=== PATIENT | male | born 1970 | race Hispanic/Latino ===

== ENCOUNTER → 2024-05-19 | Outpatient (CLI) | payer OTHER ==
[2024-05-19 16:32] LABS: HEMOGLOBIN A1C 6.9 % (4.0-6.0)
[2024-05-19 16:35] LABS: ALBUMIN 3.9 g/dL (3.5-5.0); BILIRUBIN,TOTAL 0.5 mg/dL (0.2-1.0); CREATININE 0.9 mg/dL (0.5-1.3); POTASSIUM 4.9 mmol/L (3.5-5.1); TOTAL PROTEIN, SERUM 7.1 g/dL (6.0-8.3)
== END | disposition home or self-care (01) ==
LOC: LAB 13:46
PROVIDERS: ATTEND Student in an Organized Health Care Education/Training Program
DX: I11.9 Hypertensive heart disease without heart failure (principal); E11.65 Type 2 diabetes mellitus with hyperglycemia; E78.5 Hyperlipidemia, unspecified; R07.9 Chest pain, unspecified
CPT/HCPCS: 36415; 80053; 80061; 83036

== ENCOUNTER → 2024-05-24 | Outpatient (CLI) | payer OTHER ==
[~2024-05-24] MED LIST: IOHEXOL 350 MG/ML 100ML INFUS..BTL IV ONE; metoPROLOL tartRATE 1 MG/ML 5ML VIAL IV ONE
--- NOTE | 2024-05-24 14:50 | HMCIMG ---
CT CARDIAC ANGIO W/CONT. CCTA REASON: CHEST PAIN COMPARISON: None TECHNIQUE: Images are obtained through the heart in the axial plane before and during bolus IV contrast infusion, 100 cc Omnipaque 350. 2-D and 3-D multiplanar reconstruction images were then performed. The injection had to be repeated once due to motion artifact on the first sequence, total contrast volume was 200 cc. FINDINGS: This dictation is for the noncardiac findings only. Cardiac and coronary artery findings are reported separately. Visualized portions of the lungs are clear. There is normal-appearing pulmonary interstitium. There is no hilar or mediastinal lymphadenopathy. Chest wall structures appear unremarkable. IMPRESSION: 1. Unremarkable noncardiac portions of CT cardiac angiography.
--- NOTE | 2024-05-29 13:36 | CARDIOLOGY ---
RAD REPORT: VALDOSTAARY CT ANGIO RADIOLOGY REPORT: CORONARY CT ANGIOGRAPHY DATE: May 29, 2024 QUALITY: Excellent CLINICAL HISTORY AND INDICATION: [chest pain ] TECHNIQUE: After obtaining a preliminary agricultural consultant image, contrast imaging performed on an [employer] [id number] scanner. A dedicated, limited window, coronary imaging protocol was used, with single breath-hold, retrospective ECG gating, and automated arrhythmia rejection. 100 cc of low osmolar contrast agent: Omnipaque 350 was delivered via a 18-gauge IV catheter in the right antecubital fossa, using a power injector and followed by 60 cc of normal saline bolus as a chaser. Collimated images were reformatted at 0.5 mm intervals, and sent to an offline independent workstation for interpretation, using 3D anatomic reconstructions: Curved multiplanar reconstructions, maximum intensity projections, and multiplanar imaging. 20 mg IV metoprolol was administered prior to scanning. 0.8 mg SL nitroglycerin was given. CORONARY ARTERY DESCRIPTIONS: The coronary arteries arise in normal position. Left main coronary artery: Normal caliber vessel that bifurcates into the LAD and LCx. No stenosis. Left anterior descending coronary artery: Normal caliber vessel and gives rise to diagonal and septal branches. No stenosis. Left circumflex coronary artery: Normal caliber, nondominant and gives rise to two OM branches. No stenosis. Right coronary artery: Large, dominant vessel giving rise to the PL and PDA branches. No stenosis. CAD-RADs: 0, absence of CAD. Thoracic Aorta: Normal diameter. Vijaya Selby MD Cardiovascular Disease [facility] VIJAYA SELBY MD May 29, 2024 13:36
== END | disposition home or self-care (01) ==
LOC: RAH 10:20
PROVIDERS: ATTEND Student in an Organized Health Care Education/Training Program
DX: R07.9 Chest pain, unspecified (principal)
CPT/HCPCS: 75574; J3490 ×2; Q9967

== ENCOUNTER → 2024-06-01 | Outpatient (CLI) | payer OTHER | END | disposition home or self-care (01) | LOC: SHCH 10:03 | PROVIDERS: ATTEND Student in an Organized Health Care Education/Training Program | DX: R07.9 Chest pain, unspecified (principal) | CPT/HCPCS: 93306 ==

== ENCOUNTER → 2024-07-28 | Outpatient (CLI) | payer OTHER ==
--- NOTE | 2024-07-28 17:37 | HMCIMG ---
Testicular ultrasound with color-flow Doppler Clinical Information: Comparison: Findings: The testes are of normal size and echogenicity. Vascular flow is preserved to both testes- there is no evidence of torsion. There is no evidence of inflammation. No fluid collections are seen. Specifically, there is no hydrocele. Bilateral epididymal head cysts are seen. There is no evidence of varicoceles. Scrotal wall is normal in thickness bilaterally. Impression: Normal testes. Bilateral epididymal head cysts.
== END | disposition home or self-care (01) ==
LOC: RAH 16:03
PROVIDERS: ATTEND Family Medicine
DX: N50.3 Cyst of epididymis (principal); R39.89 Other symptoms and signs involving the genitourinary system
CPT/HCPCS: 76870